=== PATIENT | male | born 1980 | race Caucasian/White ===

== ENCOUNTER 2016-11-02 16:43 | Emergency (ER) | payer SELFPAY ==
[~2016-11-02] VITALS: Ht 182.9 cm; Wt 76.0 kg
[2016-11-02 16:45] VITALS: BP 125/67; PULSE 78; RESP 16; TEMP 98.2; O2SAT 98
--- NOTE | 2016-11-02 17:05 | PD ---
HPI Chief Complaint: Medical Clearance Time Seen by Provider: 16:57 Travel History International Travel<30 days: No Contact w/Intl Traveler<30days: No Traveled to known affect area: No History of Present Illness HPI 36-year-old male that presents to the ED for evaluation of work note so he can go back to work tonight. Patient reports that on Friday he started having some food poisoning symptoms. Per patient he believes is from some [employer] state he ate on Friday. Per patient he had some abdominal discomfort and nausea and vomited. Per patient his been feeling better since. Per patient he did not sick medical attention for this is he's had in the past and he didn't think it require evaluation. Per patient he now feels 100% back to normal and wants to go to work tonight as he has to pay his bills but he cannot go back to work unless he gets cleared by a doctor. Denies any other symptoms at this time. No other medical problems at this time. PFSH Past Medical History Hx Anticoagulant Therapy: No Cardiovascular Problems: No Chemotherapy: No Cerebrovascular Accident: No Diabetes: No Diminished Hearing: No Respiratory: No Immunizations Current: Yes Social History Alcohol Use: Yes (occ) Tobacco Use: Yes Substance Use: No Allergies-Medications (Allergen,Severity, Reaction): Coded Allergies: No Known Allergies (Verified , 11/02/16) Reported Meds & Prescriptions Reported Meds & Active Scripts Active No Active Prescriptions or Reported Medications Review of Systems Except as stated in HPI: all other systems reviewed are Neg Physical Exam Narrative GENERAL: SKIN: Warm and dry. HEAD: Atraumatic. Normocephalic. EYES: Pupils equal and round. No scleral icterus. No injection or drainage. ENT: No nasal bleeding or discharge. Mucous membranes pink and moist. Tongue is midline. No uvula deviation. NECK: Trachea midline. No JVD. CARDIOVASCULAR: Regular rate and rhythm. No murmurs, S3, S4. RESPIRATORY: No accessory muscle use. Clear to auscultation. Breath sounds equal bilaterally. GASTROINTESTINAL: Abdomen soft, non-tender, nondistended. Hepatic and splenic margins not palpable. MUSCULOSKELETAL: Extremities without clubbing, cyanosis, or edema. No obvious deformities. Full range of motion of the upper and lower extremities bilaterally. 2+ pulses bilaterally. NEUROLOGICAL: Awake and alert. No obvious cranial nerve deficits. Motor grossly within normal limits. Five out of 5 muscle strength in the arms and legs. Normal speech. PSYCHIATRIC: Appropriate mood and affect; insight and judgment normal. Data Data Last Documented VS Vital Signs Date Time Temp Pulse Resp B/P Pulse Ox O2 Delivery O2 Flow Rate FiO2 11/02/16 16:45 98.2 78 16 125/67 98 MDM Medical Decision Making Medical Screen Exam Complete: Yes Emergency Medical Condition: Yes Medical Record Reviewed: Yes Differential Diagnosis Normal exam versus medical clearance versus work note Narrative Course 36-year-old male that presents to the ED for evaluation of medical clearance. Patient was properly examined and was found to have signs and symptoms consistent appears to be medical clearance so he can go back to work. He has no symptoms at this time. At this time patient was given also he can go back to work. Told to follow up with PCP. See ED for any worsening symptoms. Patient is in agreement with plan. Diagnosis Primary Impression: Food poisoning Qualified Code: T62.91XA - Food poisoning, accidental or unintentional, initial encounter Patient Instructions: General Instructions Departure Forms: Tests/Procedures, Work Release Enter return to work date: Nov 02, 2016 Additional Instructions: F/u PCP. See ED if worsening symptoms. Med/Other Pt SpecificInfo: No Change to Meds Scripts No Active Prescriptions or Reported Meds Disposition: 01 DISCHARGE HOME Condition: David Allen Nov 02, 2016 17:05
== END 2016-11-02 17:09 | disposition home or self-care (01) ==
LOC: NEPD 16:43
DX: T62.91XA Toxic effect of unspecified noxious substance eaten as food, accidental (unintentional), initial encounter (principal); Z72.0 Tobacco use
CPT/HCPCS: 99282

== ENCOUNTER 2016-12-28 14:23 | Emergency (ER) | payer SELFPAY ==
[2016-12-28 14:24] VITALS: BP 127/68; PULSE 78; RESP 20; TEMP 98.1; O2SAT 98
[2016-12-28] MEDS ORDERED: CEPH-460 PO (14:55)
[2016-12-28] MEDS ORDERED: BACT800T5 PO (14:55)
--- NOTE | 2016-12-28 14:57 | PD ---
HPI Chief Complaint: Skin Problem Time Seen by Provider: 14:55 Travel History International Travel<30 days: No Contact w/Intl Traveler<30days: No History of Present Illness HPI 36-year-old male presents to the emergency Department with complaint of lesions to his right thumb, right shoulder area, and left ankle area that will not heal 2-3 weeks. Denies fever, vomiting. Said he was exposed to a friend with staph infection a few weeks ago and is concerned he has the same infection. He has not taken any medications or tried any treatments to relieve symptoms. No known allergies. Has no other medical complaints. No other modifying factors or associated signs and symptoms. PFSH Past Medical History Hx Anticoagulant Therapy: No Cardiovascular Problems: No Chemotherapy: No Cerebrovascular Accident: No Diabetes: No Diminished Hearing: No Respiratory: No Immunizations Current: Yes Social History Alcohol Use: Yes (occ) Tobacco Use: Yes Substance Use: No Allergies-Medications (Allergen,Severity, Reaction): Coded Allergies: No Known Allergies (Verified , 11/02/16) Reported Meds & Prescriptions Reported Meds & Active Scripts Active Bactrim DS (Sulfamethoxazole-Trimethoprim) 800-160 Mg Tab 1 Tab PO BID 10 Days Keflex (Cephalexin) 500 Mg Cap 500 Mg PO Q6H 10 Days Review of Systems Except as stated in HPI: all other systems reviewed are Neg Physical Exam Narrative GENERAL: Well-nourished, well-developed male patient, in no acute distress; afebrile, nontoxic-appearing SKIN: Warm and dry. He crusted lesions noted to the right thumb, right shoulder. The patient to the left ankle appears to be a blister that has popped. No areas with drainage, erythema, edema. No signs of infection. Lesions seems to be consistent with possible impetigo. HEAD: Atraumatic. Normocephalic. EYES: Pupils equal and round. No scleral icterus. No injection or drainage. ENT: Mucosa pink and moist. Airway patent. NECK: Trachea midline. CARDIOVASCULAR: Regular rate. RESPIRATORY: No accessory muscle use. GASTROINTESTINAL: Flat. MUSCULOSKELETAL: No obvious deformities. No clubbing. No cyanosis. No edema. NEUROLOGICAL: Awake and alert. Oriented 3. No obvious cranial nerve deficits. Motor grossly within normal limits. Normal speech. PSYCHIATRIC: Appropriate mood and affect; insight and judgment normal. Data Data Last Documented VS Vital Signs Date Time Temp Pulse Resp B/P Pulse Ox O2 Delivery O2 Flow Rate FiO2 12/28/16 14:24 98.1 78 20 127/68 98 Room Air MDM Medical Decision Making Medical Screen Exam Complete: Yes Emergency Medical Condition: Yes Medical Record Reviewed: Yes Differential Diagnosis Impetigo, staph infection, nonspecific skin interruption Narrative Course 36-year-old male with lesions that seem to be consistent with impetigo. Patient has been exposed to staph infection. Patient is afebrile and nontoxic- appearing. He denies fever, vomiting. Keflex and Bactrim prescribed for home. Patient verbalizes understanding and agreement with treatment plan. Patient is medically cleared and stable for discharge. Discussed reasons to return to the emergency department. Instructed patient to follow up with primary care provider. Patient agrees with treatment plan. The patients vital signs are stable and the patient is stable for outpatient follow-up and treatment. Patient discharged home, stable and in no acute distress. Diagnosis Primary Impression: Rash and nonspecific skin eruption Referrals: [employer] [facility] Primary Care Physician Patient Instructions: Acute Rash (ED), General Instructions, Impetigo (ED), MRSA (Methicillin Resistant Staphylococcus Aureus) (ED) Additional Instructions: Antibiotics as prescribed Follow-up with [employer] architect Follow-up with primary care provider Return to the emergency department immediately with worsening of symptoms Med/Other Pt SpecificInfo: Prescription(s) given Scripts Sulfamethoxazole-Trimethoprim (Bactrim DS)800-160 Mg Tab1 Tab PO BID 10 Days Ref 0 Prov:Laura Gomez 12/28/16 Cephalexin (Keflex)500 Mg [id number] Mg PO Q6H 10 Days Ref 0 Prov:Laura Gomez 12/28/16 Disposition: 01 DISCHARGE HOME Condition: Stable Laura Gomez Dec 28, 2016 14:57
[2016-12-28 15:05] VITALS: BP 120/78; TEMP 97.8
== END 2016-12-28 15:05 | disposition home or self-care (01) ==
LOC: NEPK 14:23
DX: R21 Rash and other nonspecific skin eruption (principal); Z72.0 Tobacco use
CPT/HCPCS: 99284

== ENCOUNTER 2017-01-29 17:51 | Emergency (ER) | payer SELFPAY ==
[~2017-01-29] VITALS: Ht 182.9 cm; Wt 43.0 kg
[~2017-01-29 17:51] MED LIST: BACT800T5 PO; CEPH-460 PO
[2017-01-29 17:52] VITALS: BP 128/78; PULSE 80; RESP 20; TEMP 99.9; O2SAT 98
--- NOTE | 2017-01-29 18:33 | PD ---
Physical Exam Date Seen by Provider: Jan 29, 2017 Time Seen by Provider: 18:32 Narrative 37 yo male here for bilateral foot pain. Going on for some time. Walks a lot. homeless. Significant other here for same. per patient advil not helping. pain 8 /10. Hard to walk. No other issues. Vitals are stable. Awaiting bed placement. Data Data Last Documented VS Vital Signs Date Time Temp Pulse Resp B/P Pulse Ox O2 Delivery O2 Flow Rate FiO2 01/29/17 17:52 99.9 80 20 128/78 98 Room Air [facility] Medical Record Reviewed: Yes Supervised Visit with KIRILL: No David Patel Jan 29, 2017 18:33
[2017-01-29] MEDS ORDERED: LAMI1SPR TOPICAL (20:37)
--- NOTE | 2017-01-29 20:39 | PD ---
HPI Chief Complaint: Skin Problem Time Seen by Provider: 20:37 Travel History International Travel<30 days: No Contact w/Intl Traveler<30days: No Traveled to known affect area: No History of Present Illness HPI 37-year-old white male presents to emergency department with complains of sore some blistering on his feet from walking in wet shoes. Symptoms are mild to moderate worse with walking. No alleviating factors. PFSH Past Medical History Medical History: Denies Significant Hx Hx Anticoagulant Therapy: No Cardiovascular Problems: No Chemotherapy: No Cerebrovascular Accident: No Diabetes: No Diminished Hearing: No Respiratory: No Immunizations Current: Yes Tetanus Vaccination: < 5 Years Past Surgical History Surgical History: No Previous Surgery Social History Alcohol Use: Yes (occ) Tobacco Use: Yes (1 PACK PER DAY) Substance Use: No Allergies-Medications (Allergen,Severity, Reaction): Coded Allergies: No Known Allergies (Verified , 01/29/17) Reported Meds & Prescriptions Reported Meds & Active Scripts Active Bactrim DS (Sulfamethoxazole-Trimethoprim) 800-160 Mg Tab 1 Tab PO BID 10 Days Keflex (Cephalexin) 500 Mg Cap 500 Mg PO Q6H 10 Days Review of Systems Except as stated in HPI: all other systems reviewed are Neg Physical Exam Narrative GENERAL: This is a well-nourished, well-developed patient, in no apparent distress. SKIN: Patient has some maceration to the toes secondary to what shoes and walking. Ecchymoses or lesions. Warm and dry. HEAD: Atraumatic. Normocephalic. EYES: PERRL, EOMI, no discharge or injection. No scleral icterus. EARS: Clear NOSE: Nasal turbinates appear normal. THROAT: Mucosa pink and moist. Airway patent. NECK: Trachea midline. supple, moves head freely. LUNGS: Clear to auscultation. CV: Regular in rhythm. ABDOMEN: Soft nontender. EXT: No clubbing cyanosis or edema. Data Data Last Documented VS Vital Signs Date Time Temp Pulse Resp B/P Pulse Ox O2 Delivery O2 Flow Rate FiO2 01/29/17 17:52 99.9 80 20 128/78 98 Room Air MDM Medical Decision Making Medical Screen Exam Complete: Yes Emergency Medical Condition: Yes Medical Record Reviewed: Yes Differential Diagnosis MDM: High Differential diagnoses: Abscess, folliculitis, cellulitis, lymphangitis, abrasion, contact dermatitis, tinea Narrative Course This is tinea pedis Diagnosis Primary Impression: tinea pedis Patient Instructions: General Instructions Additional Instructions: Rest. Keep her feet clean and dry. Lamisil Follow-up a medical doctor in 1-2 weeks. Scripts Terbinafine Topical (Lamisil At Topical)1 % Spray1 Applic TOPICAL BID #1 BOTTLE Ref 0 Prov:Denis Greer MD 01/29/17 Disposition: 01 DISCHARGE HOME Condition: Stable Mike Tsang Jan 29, 2017 20:39
== END 2017-01-29 21:08 | disposition home or self-care (01) ==
LOC: NEPK 17:51
DX: B35.3 Tinea pedis (principal); F17.200 Nicotine dependence, unspecified, uncomplicated; Z79.899 Other long term (current) drug therapy
CPT/HCPCS: 99283